=== PATIENT | female | born 1985 | race Two or more races ===

== ENCOUNTER 2017-03-18 23:38 | Emergency (ER) | payer SELFPAY ==
--- NOTE | ~2017-03-18 | US106 ---
[facility] A Service of [facility] & [facility] RADIOLOGY TEXT RESULTS PATIENT: MAGALIS LYNN LOCATION: SED : 83 UNIT #: [id number] AGE: [address]: Oz Medel MD SEX: F ORDER DR: [id number] [place] [id number] MR#: [id number] Acc #: [id number] NAME: MAGALIS LYNN : 1985 SEX: F STUDY DATE/TIME: 03/19/2017 02:49 UNIT: SED ROOM: STUDY DESCRIPTION: US Preg Uterus Transvaginal Attending Physician: Oz Medel M.D. Ordering Physician: Oz Medel M.D. Primary Care Physician: Primary Care Physician No MEDICAL IMAGING REPORT This report is preliminary unless electronic signature is present. EXAM Pelvic ultrasound 03/19 02:49 INDICATIONS Pelvic pain for 1 week with fever and fatigue. Beta HCG value is 62,542. FINDINGS Transabdominal and transvaginal imaging is performed of the pelvis in multiple planes. Transvaginal imaging is performed for better evaluation of the uterine contents and adnexa. No comparison. Uterus measures about 9.5 x 5.0 x 5.9 cm. There is an intrauterine gestational sac. A yolk sac and pole are present. Estimated age by ultrasound measurement is 6 weeks 3 days for an estimated date of confinement of 11/09/2017. heart rate measured at 144 beats per second by M-mode Doppler. Both ovaries show perfusion by Doppler. There is a small left ovarian cyst measuring about 1.4 cm. Trace amount of fluid adjacent to the gestational sac within the uterus could reflect minimal subchorionic hemorrhage. It measures only about 4 x 2 x 6 mm in size. IMPRESSION 1. Living intrauterine with an estimated age of 6 weeks 3 days by ultrasound measurement. Heart rate is 144 beats per minute. 2. Potential small subchorionic hemorrhage measuring 6 x 4 x 2 mm in size. 3. Small left ovarian cyst. The ovaries are otherwise normal. Dictated by... Waylon White Jr., M.D. THIS IS AN ELECTRONICALLY VERIFIED REPORT Waylon White Jr., M.D. at 03/20/2017 6:04 AM CRAIG/misael [facility] A Service of [facility] & [facility] RADIOLOGY TEXT RESULTS PATIENT: MAGALIS LYNN LOCATION: [facility] [place] : [birth year] UNIT #: [id number] AGE: [address]: Oz Medel MD SEX: F ORDER DR: TD: 03/19/2017 10:21 JOB #: [id number] MEDICAL IMAGING REPORT Page 1 of 1
[2017-03-19 00:43] LABS: URINE SOURCE CLEAN CATCH
[2017-03-19 00:44] LABS: BASOPHIL% 0.3 % (0-2.5); DIFF IND NO; EOSINOPHIL# 0.3 X10e3 (0-0.7); EOSINOPHIL% 1.9 % (0.0-7.0); HEMATOCRIT 33.7 % (35.0-45.0); HEMOGLOBIN 11.3 gm/dL (12.0-16.0); LYMPHOCYTE% 28.6 % (17.0-45.0); MEAN CELL VOLUME 85.1 FL (83-96); MEAN CORPUSCULAR HEMOGLOBIN 28.6 PG (28-34); MEAN CORPUSCULAR HGB CONC 33.6 g/dL (30-36); MEAN PLATELET VOLUME 7.4 FL (6.5-11.5); MONOCYTE# 0.9 X10e3 (0-1.0); MONOCYTE% 6.5 % (3.0-12.0); NEUTROPHIL# 8.7 X10e3 (1.5-7.1); NEUTROPHIL% 62.7 % (40-75); PLATELET COUNT 406 X10e3 (140-420); RED BLOOD COUNT 3.96 X10e (3.90-5.30); RED CELL DISTRIBUTION WIDTH 13.3 % (11.0-15.5); WHITE BLOOD COUNT 13.8 X10e3 (4.0-10.5)
[2017-03-19 00:46] LABS: URINE APPEARANCE CLEAR; URINE BILIRUBIN NEG (NEG); URINE BLOOD TRACE-INTACT (NEG); URINE COLOR YELLOW; URINE GLUCOSE NEG (NORM); URINE KETONE NEG (NEG); URINE LEUKOCYTE ESTERASE 2+ (NEG); URINE NITRATE NEG (NEG); URINE PH 5.5 (5-8); URINE PROTEIN NEG (NEG); URINE UROBILINOGEN 0.2 MG/DL (NORM)
[2017-03-19 00:55] LABS: CALCIUM SERUM 8.5 mg/dL (8.4-10.2); CREATININE SERUM 0.4 mg/dL (0.6-1.4); GLOM FILT RATE Estimated 136.9 mL/min (>60); POTASSIUM 3.5 mmol/L (3.5-5.1)
[2017-03-19 00:58] LABS: MICRO INDICATED? YES
[2017-03-19 01:01] LABS: CULTURE INDICATED? YES; URINE BACTERIA NEG (NEG); URINE MUCUS PRESENT; URINE SQUAMOUS EPITHELIAL CELL FEW /[HPF]
[2017-03-21 15:28] LABS: CHLAMYDIA TRACH Not Detected (Not Detected); N GONOR Not Detected (Not Detected)
== END 2017-03-19 04:43 | disposition home or self-care (01) ==
LOC: SED 23:38
PROVIDERS: Emergency Medicine
DX: O23.41 Unspecified infection of urinary tract in pregnancy, first trimester (principal); Z90.49 Acquired absence of other specified parts of digestive tract; Z90.89 Acquired absence of other organs; Z3A.01 Less than 8 weeks gestation of pregnancy
CPT/HCPCS: 36415; 76817; 80048; 81003; 84702; 85025; 86900; 86901; 87086; 87491; 87591; 87808; 87905; 96361; 96374; 99284; J0696